=== PATIENT | female | born 1945 | race Caucasian/White ===

== ENCOUNTER 2017-01-07 14:07 | Emergency (ER) | payer MEDICARE, MEDICAID ==
[~2017-01-07] VITALS: Ht 162.6 cm; Wt 65.0 kg
[~2017-01-07 14:07] MED LIST: ERYT500 PO; GUAI100S6 PO; PRED20 PO; PROVENTIL HFA INH; Z.0.NO CURRENT MEDS
[2017-01-07 14:16] VITALS: BP 193/86; PULSE 88; RESP 20; TEMP 99.1; O2SAT 95
[2017-01-07] MEDS ORDERED: AMOX875T PO (14:54)
--- NOTE | 2017-01-07 14:54 | PD ---
HPI . Sore throat Chief Complaint: ENT Complaint Time Seen by Provider: 14:50 Travel History International Travel<30 days: No Contact w/Intl Traveler<30days: No Traveled to known affect area: No History of Present Illness HPI This patient presents with a chief complaint of a sore throat. Onset was 4 days. She denies any associated fever. She complains with some mild nasal congestion. No modifying factors. She states that she gets this once every 4 years and is given a prescription for an antibiotic that she gets at [facility]. She states that that always works. PFSH Past Medical History Diminished Hearing: No ?: Not Menopausal: Yes Past Surgical History Gynecologic Surgery: Yes (LABIAL CYST REMOVED) Social History Alcohol Use: No Tobacco Use: No Substance Use: No Allergies-Medications (Allergen,Severity, Reaction): Coded Allergies: No Known Allergies (Verified Adverse Reaction, Unknown, 01/07/17) Reported Meds & Prescriptions Reported Meds & Active Scripts Active No Active Prescriptions or Reported Medications Review of Systems Except as stated in HPI: all other systems reviewed are Neg General / Constitutional: No: Fever, Chills HENT: Positive: Sore Throat, Congestion Physical Exam Narrative GENERAL: Awake and alert and in no acute distress. SKIN: Warm and dry with no rash or lesions. HEAD: Normocephalic/atraumatic. EYES: Pupils are equal. Extraocular movements are intact. ENT: Minimal erythema of the oropharynx. No tonsillar enlargement. No exudate. No peritonsillar swelling. NECK: Neck is supple with no cervical lymphadenopathy. CARDIOVASCULAR: Heart sounds are normal. RESPIRATORY: Lungs sound clear with good air movement throughout. MUSCULOSKELETAL: Atraumatic. NEUROLOGICAL: Nonfocal. PSYCHIATRIC: Appropriate mood and affect. Data Data Last Documented VS Vital Signs Date Time Temp Pulse Resp B/P (MAP) Pulse Ox O2 Delivery O2 Flow Rate FiO2 01/07/17 14:16 99.1 88 20 193/86 (121) 95 Room Air [facility] Medical Decision Making Medical Screen Exam Complete: Yes Emergency Medical Condition: Yes Differential Diagnosis Differential diagnosis of sore throat includes but is not limited to viral illness, strep throat, mononucleosis, retropharyngeal abscess, peritonsillar abscess Narrative Course This patient presents with a sore throat. She states that she gets it every 4 years and is always given an antibiotic. She is requesting same. Diagnosis Primary Impression: Pharyngitis Qualified Codes: J02.9 - Acute pharyngitis, unspecified Patient Instructions: General Instructions, Pharyngitis (DC) Med/Other Pt SpecificInfo: Prescription(s) given Scripts Amoxicillin (Amoxicillin) 875 Mg Tab 875 MG PO BID for Infection for 7 Days, #14 TAB 0 Refills Prov: Ludy Gandhi MD 01/07/17 Disposition: 01 DISCHARGE HOME Condition: Stable Ludy Gandhi MD Jan 07, 2017 14:54
== END 2017-01-07 15:15 | disposition home or self-care (01) ==
LOC: NETRI 14:07
DX: J02.9 Acute pharyngitis, unspecified (principal)
CPT/HCPCS: 99283